=== PATIENT | female | born 1950 | race Caucasian/White ===

== ENCOUNTER → 2017-12-01 | Outpatient (CLI) | payer MEDICARE | END | disposition home or self-care (01) | LOC: CFH 14:06 | PROVIDERS: ATTEND Nurse Practitioner | DX: M25.561 Pain in right knee (principal); M25.562 Pain in left knee ==

== ENCOUNTER → 2018-01-05 | Outpatient (CLI) | payer MEDICARE ==
[~2018-01-05] MED LIST: LEVO125T5 PO
== END | disposition home or self-care (01) ==
LOC: STAR 11:52
PROVIDERS: ATTEND Surgery
DX: Z01.818 Encounter for other preprocedural examination (principal)
CPT/HCPCS: 93005

== ENCOUNTER 2018-01-19 07:05 | Inpatient (IN) | payer MEDICARE ==
[~2018-01-19] VITALS: Ht 160 cm; Wt 92.2 kg
[~2018-01-19 07:05] MED LIST changes: +BUPIVACAINE/PF-EPI 0.5% 1:200K ONE
[2018-01-19] MEDS ORDERED: LACTATED RINGERS 1,000 ML IV SCH (07:36)
[2018-01-19] MEDS ORDERED: MIDAZOLAM 1 MG/ML, 2ML ONE (08:28)
[2018-01-19] MEDS ORDERED: DEXAMETHASONE 4 MG/ML, 1ML ONE ×2 (08:28)
[2018-01-19] MEDS ORDERED: FENTANYL PF 100 MCG/2ML ONE ×2 (08:28→10:22)
[2018-01-19] MEDS ORDERED: SUCCINYLCHOLINE 20 MG/ML, 10ML ONE (08:28)
[2018-01-19] MEDS ORDERED: PROPOFOL 10 MG/ML, 20ML ONE (08:28)
[2018-01-19] MEDS ORDERED: CEFAZOLIN 1,000 MG ONE ×2 (09:16)
[2018-01-19] MEDS ORDERED: ALBUTEROL SULFATE 2.5 MG/3 ML NPPB PRN (10:00)
[2018-01-19] MEDS ORDERED: hydrALAzine 20 MG/ML, 1ML IV PRN ×2 (10:00→13:30)
[2018-01-19] MEDS ORDERED: LORazepam 2 MG/ML, 1ML IVPush PRN (10:00)
[2018-01-19] MEDS ORDERED: OXYcodone 5 MG/5 ML ORAL.SOL UDC PO PRN (10:00)
[2018-01-19] MEDS ORDERED: DIAZEPAM 5 MG/ML, 2ML IVPush PRN (10:00)
[2018-01-19] MEDS ORDERED: MORPHINE SULFATE 4 MG/ML, 1ML IVPush PRN (10:00)
[2018-01-19] MEDS ORDERED: LABETALOL 5MG/ML, 20ML IV PRN (10:00)
[2018-01-19] MEDS ORDERED: DIPHENHYDRAMINE 50 MG/ML, 1ML IVPush PRN (10:00)
[2018-01-19] MEDS ORDERED: MIDAZOLAM 1 MG/ML, 2ML IV PRN (10:00)
[2018-01-19] MEDS ORDERED: MEPERIDINE/PF 25MG/0.5ML IVPush PRN (10:00)
[2018-01-19] MEDS ORDERED: HYDROmorphone 1 MG/ML, 1ML IV PRN (10:00)
[2018-01-19] MEDS ORDERED: ACETAMINOPHEN 325 MG TABLET PO PRN ×2 (10:00→13:30)
[2018-01-19] MEDS ORDERED: FENTANYL PF 100 MCG/2ML IV PRN (10:00)
[2018-01-19] MEDS ORDERED: METOPROLOL 1 MG/ML, 5ML IV PRN (10:00)
[2018-01-19] MEDS ORDERED: EPHEDRINE 50 MG/ML, 1ML IVPush PRN (10:00)
[2018-01-19] MEDS ORDERED: PROCHLORPERAZINE 5 MG/ML, 2ML IV PRN (10:00)
[2018-01-19] MEDS ORDERED: ESMOLOL 100 MG/10 ML ONE (10:23)
[2018-01-19] MEDS ORDERED: ONDANSETRON 2MG/ML, 2ML ONE ×2 (10:40)
[2018-01-19] MEDS ORDERED: OXYcodone 5 MG/5 ML ORAL.SOL UDC ONE (11:23)
[2018-01-19] MEDS ORDERED: MORPHINE SULFATE 4 MG/ML, 1ML ONE (11:56)
[2018-01-19] MEDS ORDERED: ONDANSETRON 2MG/ML, 2ML IV PRN (13:30)
[2018-01-19] MEDS ORDERED: HYDROcodone/APAP 5/325 TABLET PO PRN (13:30)
[2018-01-19] MEDS ORDERED: ACETAMINOPHEN 650 MG SUPP PR PRN (13:30)
[2018-01-19 14:48] VITALS: BP 137/83
[2018-01-19] MEDS: CALCIUM/VITAMIN D3 250-125 TABLET PO SCH ×2 (16:01→20:41)
[2018-01-19] MEDS ORDERED: ROCURONIUM 10MG/ML,5ML ONE (16:02)
[2018-01-19 20:24] VITALS: BP 133/81
[2018-01-19] MEDS: SODIUM CHLORIDE FLUSH 10ML SYR IVF SCH (20:41)
[2018-01-20 00:04] VITALS: BP 140/87
[2018-01-20 04:11] VITALS: BP 136/93
[2018-01-20 05:39] LABS: CALCIUM 7.9 mg/dL (8.5-10.1)
[2018-01-20] MEDS ORDERED: LEVOTHYROXINE 125 MCG TABLET PO SCH (06:00)
[2018-01-20 07:37] VITALS: BP 139/81
[2018-01-20] MEDS ORDERED: CALCIUM GLUCONATE 4.6 MEQ in SODIUM CHLORIDE 0.9% 50 ML IV ONE (09:00)
[2018-01-20] MEDS: SODIUM CHLORIDE FLUSH 10ML SYR IVF SCH (09:00)
[2018-01-20] MEDS: CALCIUM/VITAMIN D3 250-125 TABLET PO SCH ×2 (09:27→16:31)
[2018-01-20 13:38] VITALS: BP 126/79
[2018-01-20] MEDS ORDERED: CALC1TAB84 PO (17:16)
[2018-01-21] MEDS ORDERED: LEVOTHYROXINE 125 MCG TABLET PO SCH (06:00)
== END 2018-01-20 17:40 | disposition home or self-care (01) | DRG 627 ==
LOC: OUT 07:05 → 4NOR 12:18 → OUT 13:33
PROVIDERS: ADMIT Surgery; ATTEND Surgery
PROC: 4A1104Z Monitoring of Peripheral Nervous Electrical Activity, Open Approach (ICD-10-PCS; 2018-01-19)
PROC: 0GTK0ZZ Resection of Thyroid Gland, Open Approach (ICD-10-PCS; principal; 2018-01-19 09:45)
DX: E04.2 Nontoxic multinodular goiter (principal); R13.10 Dysphagia, unspecified; E11.9 Type 2 diabetes mellitus without complications; E03.9 Hypothyroidism, unspecified; Z90.49 Acquired absence of other specified parts of digestive tract; Z90.710 Acquired absence of both cervix and uterus; E66.9 Obesity, unspecified; Z68.36 Body mass index [BMI] 36.0-36.9, adult; E06.3 Autoimmune thyroiditis
CPT/HCPCS: 36415; 82310; 82962; 83970; 88307; G0378; J0610; J0690; J1100; J2250; J2405; J2704; J3010; C1760; J0330

== ENCOUNTER 2018-06-01 10:23 | Outpatient (CLI) | payer MEDICARE ==
[~2018-06-01 10:23] MED LIST changes: -BUPIVACAINE/PF-EPI 0.5% 1:200K ONE; +CALC1TAB84 PO
== END 2018-06-01 23:59 | disposition home or self-care (01) ==
LOC: CFH 10:23
PROVIDERS: ATTEND Nurse Practitioner
DX: M47.814 Spondylosis without myelopathy or radiculopathy, thoracic region (principal); M47.813 Spondylosis without myelopathy or radiculopathy, cervicothoracic region; M43.8X4 Other specified deforming dorsopathies, thoracic region; M41.84 Other forms of scoliosis, thoracic region; M25.78 Osteophyte, vertebrae; M48.02 Spinal stenosis, cervical region
CPT/HCPCS: 72040; 72072

== ENCOUNTER → 2018-06-17 | Outpatient (CLI) | payer MEDICARE | END | disposition home or self-care (01) | LOC: CFH 09:08 | PROVIDERS: ATTEND Nurse Practitioner | DX: M51.34 Other intervertebral disc degeneration, thoracic region (principal); M50.30 Other cervical disc degeneration, unspecified cervical region; D18.09 Hemangioma of other sites | CPT/HCPCS: 72141; 72146 ==

== ENCOUNTER → 2018-07-28 | Outpatient (CLI) | payer MEDICARE | END | disposition home or self-care (01) | LOC: CFH 10:32 | PROVIDERS: ATTEND Neurological Surgery | DX: R51 Headache (principal) | CPT/HCPCS: 70450 ==

== ENCOUNTER 2018-08-04 14:59 | Emergency (ER) | payer MEDICARE ==
[~2018-08-04] VITALS: Ht 160 cm; Wt 88.3 kg
--- NOTE | 2018-08-04 15:26 | NUR ---
PT TO ED WITH SON AFTER GLF APPROX 1 HOUR AGO. UNKNOWN LOC. PT STATES DOES NOT RECALL EVENT. PT REMEMBERS GOING DOWN AND THEN WAKING UP ON THE GROUND. PT ABLE TO WALK AFTER EVENT. HEMATOMA TO LEFT FORHEAD AND PAIN TO LEFT KNEE. CONNECTED TO MONIOTRS. TACHY, 110S-110S, HTN 193/94, ALL TOHER VSS ON RA. EDPA TO BS FOR ASSESSMENT. LAB AT BS TO DRAW. CALL LIGHT WITHIN REACH. AWAITING RESULTS.
[2018-08-04 15:48] LABS: BASOPHILS # (AUTO) 0.03 x10^3/uL (0-0.1); BASOPHILS % (AUTO) 0 % (0-1); EOSINOPHILS # (AUTO) 0.15 x10^3/uL (0-0.4); EOSINOPHILS % (AUTO) 2 % (1-7); LYMPHOCYTES # (AUTO) 2.29 x10^3/uL (1-3.4); LYMPHOCYTES % (AUTO) 25 % (22-44); MD NO; MEAN CORPUSCULAR HEMOGLOBIN 27.2 pg (27.0-34.8); MEAN CORPUSCULAR HGB CONC 33.4 g/dL (32.4-35.8); MEAN CORPUSCULAR VOLUME 81.5 fL (80-100); MEAN PLATELET VOLUME 9.5 fL (7.4-10.4); MONOCYTES # (AUTO) 0.55 x10^3/uL (0.2-0.8); MONOCYTES % (AUTO) 6 % (2-9); NEUTROPHILS # (AUTO) 6.33 x10^3/uL (1.8-6.8); NEUTROPHILS % (AUTO) 68 % (42-75); PLATELET COUNT 230 x10^3/uL (130-400); RED BLOOD COUNT 5.67 x10^6/uL (3.82-5.3); RED CELL DISTRIBUTION WIDTH 14.3 % (9.6-15.2)
--- NOTE | 2018-08-04 15:55 | NUR ---
PT TO IMAGING
[2018-08-04 15:56] LABS: ANION GAP 6 mmol/L (5-15); CALCIUM 8.5 mg/dL (8.5-10.1); CHLORIDE 107 mmol/L (98-107); CREATININE 0.64 mg/dL (0.55-1.02)
[2018-08-04 16:00] LABS: TROPONIN I < 0.015 ng/mL (0.000-0.045)
--- NOTE | 2018-08-04 16:38 | NUR ---
PT RESTING IN ROOM WITH FAMILY AT BEDSIDE. HTN, 179/72, TACHY 102. ALL OTHER VSS ON RA. ALL RESULTS BACK AT THIS TIME. EDMD PRESENT TO UPDATE ON POC. AWAITING DISPO.
[2018-08-04 16:41] VITALS: BP 179/72
== END 2018-08-04 16:59 | disposition home or self-care (01) ==
LOC: ED 16:53
DX: S00.83XA Contusion of other part of head, initial encounter (principal); S80.02XA Contusion of left knee, initial encounter; E03.9 Hypothyroidism, unspecified; Z90.49 Acquired absence of other specified parts of digestive tract; R00.0 Tachycardia, unspecified; Z90.710 Acquired absence of both cervix and uterus; W01.0XXA Fall on same level from slipping, tripping and stumbling without subsequent striking against object, initial encounter; Y93.89 Activity, other specified; Y92.59 Other trade areas as the place of occurrence of the external cause; Y99.8 Other external cause status
CPT/HCPCS: 36415; 70450; 80048; 82040; 84484; 85025; 93005; 99284

== ENCOUNTER → 2020-08-03 | Outpatient (CLI) | payer MEDICARE ==
[~2020-08-03] MED LIST changes: +CALC-694 PO; -CALC1TAB84 PO; +REGADENOSON 0.4 MG/5 ML SYRINGE ONE
== END | disposition home or self-care (01) ==
LOC: CVU 09:24
PROVIDERS: ATTEND Internal Medicine Cardiovascular Disease
DX: I35.8 Other nonrheumatic aortic valve disorders (principal); I10 Essential (primary) hypertension; R55 Syncope and collapse
CPT/HCPCS: 78452; 93017; 93306; 93356; 93880; A9502; J2785

== ENCOUNTER 2020-09-14 07:35 | Day surgery (SDC) | payer MEDICARE ==
[~2020-09-14] VITALS: Ht 160 cm; Wt 81.0 kg
[~2020-09-14 07:35] MED LIST changes: -REGADENOSON 0.4 MG/5 ML SYRINGE ONE
[2020-09-14] MEDS ORDERED: CARV6.2512 PO (08:13)
[2020-09-14] MEDS ORDERED: ATOR40TA PO (08:13)
[2020-09-14] MEDS ORDERED: LISI-167 PO (08:13)
[2020-09-14] MEDS ORDERED: GLIP5TAB10 PO (08:13)
[2020-09-14] MEDS ORDERED: METF500T17 PO (08:13)
[2020-09-14 09:05] LABS: BASOPHILS % (AUTO) 1 % (0-1); EOSINOPHILS % (AUTO) 2 % (1-7); LYMPHOCYTES % (AUTO) 23 % (22-44); MEAN CORPUSCULAR HEMOGLOBIN 27.2 pg (27.0-34.8); MEAN CORPUSCULAR HGB CONC 33.7 g/dL (32.4-35.8); MEAN PLATELET VOLUME 9.7 fL (7.4-10.4); MONOCYTES % (AUTO) 5 % (2-9); NEUTROPHILS % (AUTO) 70 % (42-75); PLATELET COUNT 192 x10^3/uL (130-400); RED BLOOD COUNT 5.15 x10^6/uL (3.82-5.3); RED CELL DISTRIBUTION WIDTH 14.5 % (9.6-15.2)
[2020-09-14 09:07] LABS: ANION GAP 8 mmol/L (5-15); CALCIUM 8.7 mg/dL (8.5-10.1); CHLORIDE 108 mmol/L (98-107); CREATININE 0.65 mg/dL (0.55-1.02)
[2020-09-14 09:09] LABS: INTERNATIONAL NORMALIZED RATIO 0.95 (0.93-1.1); PROTHROMBIN TIME 10.2 Seconds (9.6-11.5)
[2020-09-14 09:13] LABS: PARTIAL THROMBOPLASTIN TIME < 23 Seconds (25-31)
[2020-09-14] MEDS ORDERED: LIDOCAINE 1%, 20ML ONE (09:27)
[2020-09-14] MEDS ORDERED: MIDAZOLAM 1 MG/ML, 5ML ONE (09:27)
[2020-09-14] MEDS ORDERED: FENTANYL PF 100 MCG/2ML ONE (09:27)
[2020-09-14] MEDS ORDERED: ACETAMINOPHEN 325 MG TABLET ONE (13:35)
== END 2020-09-14 14:12 | disposition home or self-care (01) ==
LOC: CACL 07:35
PROVIDERS: ATTEND Internal Medicine Cardiovascular Disease
DX: R07.9 Chest pain, unspecified (principal); I10 Essential (primary) hypertension; E11.9 Type 2 diabetes mellitus without complications; Z79.899 Other long term (current) drug therapy
CPT/HCPCS: 36415; 80048; 85025; 85610; 85730; 93458; 99156; 99157; C1760; C1769; C1894; J2250; J3010; Q9967